=== PATIENT | male | born 1985 | race Caucasian/White ===

== ENCOUNTER 2017-02-14 07:26 | Emergency (ER) | payer BC ==
[2017-02-14] MEDS ORDERED: Bacitracin Oint 1 GM U/D Packet ONE (07:40)
[2017-02-14] MEDS ORDERED: Lidocaine 1% 20 ML MDV ONE (07:41)
--- NOTE | 2017-02-14 07:42 | EDM.PDOC ---
ED HPI GENERAL MEDICAL PROBLEM - General Chief Complaint: Laceration Stated Complaint: LACERATION LEFT LEG Time Seen by Provider: 02/14/17 07:28 - History of Present Illness INITIAL COMMENTS - FREE TEXT/NARRATIVE: HISTORY AND PHYSICAL: History of present illness: Patient 31-year-old male presents with concern of laceration of his left thigh discomfort when he slipped on his tailgate there is no other trauma or concern he is up-to-date on his tetanus Review of systems: As per history of present illness and below otherwise all systems reviewed and negative. Past medical history: As per history of present illness and as reviewed below otherwise noncontributory. Surgical history: As per history of present illness and as reviewed below otherwise noncontributory. Social history: No reported history of drug or alcohol abuse. Family history: As per history of present illness and as reviewed below otherwise noncontributory. Physical exam: HEENT: Atraumatic, normocephalic, pupils reactive, negative for conjunctival pallor or scleral icterus, mucous membranes moist, throat clear, neck supple, nontender, trachea midline. Lungs: Clear to auscultation, breath sounds equal bilaterally, chest nontender. Heart: S1S2, regular, negative for clicks, rubs, or JVD. Abdomen: Soft, nondistended, nontender. Negative for masses or hepatosplenomegaly. Negative for costovertebral tenderness. Pelvis: Stable nontender. Genitourinary: Laceration medial thigh noted approximately 4 cm moderate depth is no involvement of the genitourinary tract exam is otherwise negative Rectal: Deferred. Extremities: Atraumatic, negative for cords or calf pain. Neurovascular unremarkable. Neuro: Awake, alert, oriented. Cranial nerves II through XII unremarkable. Cerebellum unremarkable. Motor and sensory unremarkable throughout. Exam nonfocal. Diagnostics: None Therapeutics: Patient was anesthetized 1% lidocaine without epinephrine. 0.9 normal saline prepped and draped in sterile manner closed with 4-0 nylon interrupted sutures Impression: #1 laceration left thigh Definitive disposition and diagnosis as appropriate pending reevaluation and review of above. Left Groin Pain Score (Numeric/FACES): 3 - Related Data Allergies Allergy/AdvReac Type Severity Reaction Status Date / Time No Known Allergies Allergy Verified 02/14/17 07:37 Home Meds: Home Meds . [No Known Home Meds] 02/14/17 [History] ED ROS GENERAL - Review of Systems Review Of Systems: ROS reveals no pertinent complaints other than HPI. ED EXAM, SKIN/RASH Exam: See Below (See dictation) Course - Vital Signs Last Recorded V/S: Last Vital Signs Temp 36.1 C 02/14/17 07:32 Pulse 65 02/14/17 07:32 Resp 18 02/14/17 07:32 BP 139/81 02/14/17 07:32 Pulse Ox 98 02/14/17 07:32 Departure - Departure Time of Disposition: 07:41 Disposition: Home, Self-Care 01 Condition: Good Clinical Impression: Laceration of left thigh - Discharge Information Forms: ED Department Discharge Additional Instructions: The following information is given to patients seen in the emergency department who are being discharged to home. This information is to outline your options for follow-up care. We provide all patients seen in our emergency department with a follow-up referral. The need for follow-up, as well as the timing and circumstances, are variable depending upon the specifics of your emergency department visit. If you don't have a primary care physician on staff, we will provide you with a referral. We always advise you to contact your personal physician following an emergency department visit to inform them of the circumstance of the visit and for follow-up with them and/or the need for any referrals to a consulting specialist. The emergency department will also refer you to a specialist when appropriate. This referral assures that you have the opportunity for followup care with a specialist. All of these measure are taken in an effort to provide you with optimal care, which includes your followup. Under all circumstances we always encourage you to contact your private physician who remains a resource for coordinating your care. When calling for followup care, please make the office aware that this follow-up is from your recent emergency room visit. If for any reason you are refused follow-up, please contact the [facility] emergency department at and asked to speak to the emergency department charge nurse. Wound care as directed PMD follow-up wound check 24-48 hour suture removal 10- 14 days
[2017-02-14] MEDS ORDERED: Lidocaine 1% 20 ML MDV INJECT ONE (07:43)
[2017-02-14] MEDS ORDERED: Bacitracin Oint 1 GM U/D Packet TOP ONE (07:44)
[2017-02-14 07:59] VITALS: BP 130/78
== END 2017-02-14 07:57 | disposition home or self-care (01) ==
LOC: MW.ED 07:26
DX: S71.112A Laceration without foreign body, left thigh, initial encounter (principal); X58.XXXA Exposure to other specified factors, initial encounter
CPT/HCPCS: 12002; 99282